=== PATIENT | female | born 1960 | race Caucasian/White ===

== ENCOUNTER 2017-05-21 06:37 | Observation (INO) | payer BC ==
[~2017-05-21] VITALS: Ht 165.1 cm; Wt 88.0 kg
[2017-05-21 07:20] LABS: URINE BILIRUBIN - DIPSTICK NEGATIVE (NEGATIVE); URINE BLOOD DIPSTICK NEGATIVE (NEGATIVE); URINE CLARITY CLEAR; URINE COLOR YELLOW; URINE GLUCOSE - DIPSTICK NEGATIVE (NEGATIVE); URINE KETONE NEGATIVE (NEGATIVE); URINE LEUK ESTERASE SMALL (NEGATIVE); URINE NITRITE - DIPSTICK NEGATIVE (Negative); URINE PROTEIN - DIPSTICK NEGATIVE (NEG-TRACE); URINE UROBILINOGEN - DIPSTICK 0.2 E.U./dL (0.2)
[2017-05-21] MEDS ORDERED: CYCLOBENZAPR10 MG PO (07:25)
[2017-05-21] MEDS ORDERED: PANTOPRAZOLE SO40 MG PO (07:25)
[2017-05-21] MEDS ORDERED: B121000 MCG PO (07:26)
[2017-05-21] MEDS ORDERED: ASPIRIN81 MG PO (07:26)
[2017-05-21 07:27] LABS: HEMATOCRIT 41.8 % (37.0-47.0); HEMOGLOBIN 14.4 g/dl (12.0-16.0); IMMATURE GRANULOCYTES 0.3 % (0.0-1.0); MEAN CELL VOLUME 98.8 fL CALC (80.0-100.0); MEAN CORPUSCULAR HGB CONC 34.4 g/L CALC (32.0-36.0); NEUT# 9.4 thou/uL (2.00-7.15); RED BLOOD COUNT 4.23 mill/uL (4.20-5.60); RED CELL DISTRI WIDTH 12.2 % (11.5-15.5); URINE BACTERIA FEW hpf; URINE SQUAMOUS EPITHELIAL CELL FEW EPI/hpf (0-FEW)
[2017-05-21] MEDS ORDERED: HYZAAR1 TA1 PO (07:27)
[2017-05-21] MEDS ORDERED: BIOTIN1000 MCG PO (07:28)
[2017-05-21 07:29] LABS: ALBUMIN 4.4 g/dL (3.2-5.0); ALKALINE PHOSPHATASE 62 u/l (38-126); ANION GAP 16 (6-22 (CALC)); BILIRUBIN, TOTAL 0.9 mg/dL (0.0-1.4); BUN 11 mg/dL (7-17); BUN/CREATININE RATIO 22 (12-20 (CALC)); CALCIUM 9.2 mg/dL (8.4-10.2); CARBON DIOXIDE 26 mmol/l (22-30); CHLORIDE 103 mmol/l (95-108); CREATININE 0.5 mg/dL (0.5-1.0); GFR > 60 ML/MIN (>=60 (CALC)); GFR FOR AFR.AMER. > 60 ML/MIN (>=60 (CALC)); GLUCOSE 126 mg/dL (65-105); POTASSIUM 4.2 mmol/l (3.5-5.1); SGOT/AST 63 u/l (14-36); SGPT/ALT 121 u/l (9-52); SODIUM 139 mmol/l (137-146); TOTAL PROTEIN 7.7 g/dL (6.3-8.2)
[2017-05-21] MEDS ORDERED: NEURONTIN300 MG PO (07:29)
[2017-05-21] MEDS ORDERED: AMLODIPINE5 MG PO (07:29)
[2017-05-21] MEDS ORDERED: NITROGLYCERIN0.4 MG SL (07:30)
[2017-05-21 07:42] LABS: MYOGLOBIN 19 ng/mL (0 - 62)
[2017-05-21 08:00] LABS: INTERNATIONAL NORMALIZED RATIO 0.9 RATIO (0.7-1.3)
[2017-05-21 09:06] LABS: CHOLESTEROL HDL RATIO 3.3 (<4.4 (CALC))
[2017-05-21 10:30] VITALS: BP 118/70
[2017-05-21 15:09] VITALS: BP 100/71
[2017-05-21 20:01] VITALS: BP 110/70
[2017-05-22 00:09] VITALS: BP 106/70
[2017-05-22 04:36] VITALS: BP 116/83
[2017-05-22 05:29] LABS: HEMOGLOBIN 13.3 g/dl (12.0-16.0); IMMATURE GRANULOCYTES 0.3 % (0.0-1.0); MEAN CELL VOLUME 103.5 fL CALC (80.0-100.0); MEAN CORPUSCULAR HGB 33.6 pG CALC (26.0-32.0); MEAN CORPUSCULAR HGB CONC 32.4 g/L CALC (32.0-36.0); NEUT# 9.98 thou/uL (2.00-7.15); RED BLOOD COUNT 3.96 mill/uL (4.20-5.60); RED CELL DISTRI WIDTH 12.1 % (11.5-15.5)
[2017-05-22 06:00] LABS: ALBUMIN 3.9 g/dL (3.2-5.0); ALKALINE PHOSPHATASE 68 u/l (38-126); ANION GAP 15 (6-22 (CALC)); BILIRUBIN, TOTAL 0.8 mg/dL (0.0-1.4); BUN 8 mg/dL (7-17); BUN/CREATININE RATIO 14 (12-20 (CALC)); CARBON DIOXIDE 29 mmol/l (22-30); CHLORIDE 100 mmol/l (95-108); CREATININE 0.5 mg/dL (0.5-1.0); GFR > 60 ML/MIN (>=60 (CALC)); GFR FOR AFR.AMER. > 60 ML/MIN (>=60 (CALC)); GLUCOSE 101 mg/dL (65-105); POTASSIUM 4.3 mmol/l (3.5-5.1); SGOT/AST 38 u/l (14-36); SGPT/ALT 99 u/l (9-52); SODIUM 140 mmol/l (137-146); TOTAL PROTEIN 6.7 g/dL (6.3-8.2)
[2017-05-22 08:01] VITALS: BP 122/63
[2017-05-22 15:37] VITALS: BP 123/71
[2017-05-22 19:37] VITALS: BP 112/55
[2017-05-23 05:20] VITALS: BP 109/73
[2017-05-23 08:01] VITALS: BP 112/71
[2017-05-23 09:22] LABS: ALBUMIN 3.9 g/dL (3.2-5.0); ALKALINE PHOSPHATASE 94 u/l (38-126); ANION GAP 14 (6-22 (CALC)); BILIRUBIN, TOTAL 0.7 mg/dL (0.0-1.4); BUN 8 mg/dL (7-17); BUN/CREATININE RATIO 14 (12-20 (CALC)); CALCIUM 9.1 mg/dL (8.4-10.2); CARBON DIOXIDE 31 mmol/l (22-30); CHLORIDE 100 mmol/l (95-108); CREATININE 0.6 mg/dL (0.5-1.0); GFR > 60 ML/MIN (>=60 (CALC)); GFR FOR AFR.AMER. > 60 ML/MIN (>=60 (CALC)); GLUCOSE 132 mg/dL (65-105); HEMATOCRIT 40.9 % (37.0-47.0); HEMOGLOBIN 13.4 g/dl (12.0-16.0); IMMATURE GRANULOCYTES 0.5 % (0.0-1.0); MEAN CORPUSCULAR HGB 33.8 pG CALC (26.0-32.0); MEAN CORPUSCULAR HGB CONC 32.8 g/L CALC (32.0-36.0); NEUT# 8.28 thou/uL (2.00-7.15); POTASSIUM 4.4 mmol/l (3.5-5.1); RED BLOOD COUNT 3.97 mill/uL (4.20-5.60); SGOT/AST 86 u/l (14-36); SGPT/ALT 143 u/l (9-52); SODIUM 140 mmol/l (137-146); TOTAL PROTEIN 6.9 g/dL (6.3-8.2)
== END 2017-05-23 13:20 | disposition home or self-care (01) | DRG 392 ==
LOC: ENPENDDIS → ED 06:37 → ED-I 09:20 → ED 09:29 → MS2 09:30
PROVIDERS: Emergency Medicine; ADMIT Internal Medicine Geriatric Medicine; ATTEND Internal Medicine Geriatric Medicine
DX: R10.31 Right lower quadrant pain (principal); R16.0 Hepatomegaly, not elsewhere classified; I10 Essential (primary) hypertension; R10.11 Right upper quadrant pain; R60.0 Localized edema; K21.9 Gastro-esophageal reflux disease without esophagitis; G89.29 Other chronic pain; M54.5 Low back pain
CPT/HCPCS: A9537; G0378; Q9967

== ENCOUNTER 2017-07-26 11:16 | Emergency (ER) | payer BC ==
[~2017-07-26] VITALS: Ht 165.1 cm; Wt 100.0 kg
[~2017-07-26 11:16] MED LIST: AMLODIPINE5 MG PO; ASPIRIN81 MG PO; B121000 MCG PO; BIOTIN1000 MCG PO; CYCLOBENZAPR10 MG PO; HYZAAR1 TA1 PO; NEURONTIN300 MG PO; NITROGLYCERIN0.4 MG SL; PANTOPRAZOLE SO40 MG PO
[2017-07-26 12:25] VITALS: BP 113/79
== END 2017-07-26 12:25 | disposition home or self-care (01) | DRG 951 ==
LOC: ED 11:16
DX: Z20.811 Contact with and (suspected) exposure to meningococcus (principal)